=== PATIENT | female | born 1960 ===

== ENCOUNTER 2021-08-08 15:01 | Outpatient (RCR) | payer OTHER | END 2021-08-10 | LOC: PT 15:01 | PROVIDERS: ATTEND Physician Assistant | DX: M47.896 Other spondylosis, lumbar region (principal) ==

== ENCOUNTER 2021-08-15 09:26 | Outpatient (RCR) | payer OTHER | END 2021-09-10 | LOC: PT 09:26 | PROVIDERS: ATTEND Physician Assistant | DX: M47.896 Other spondylosis, lumbar region (principal) ==